=== PATIENT | female | born 1995 | race Caucasian/White ===

== ENCOUNTER 2021-05-30 19:09 | Inpatient (IN) | payer BC ==
[2021-05-30] MEDS ORDERED: Sodium Chloride 0.9% 10 ML Syringe FLUSH PRN (19:32)
[2021-05-30] MEDS ORDERED: Nalbuphine 10 MG/1 ML Vial IVPUSH PRN (19:32)
[2021-05-30] MEDS ORDERED: Calcium Carbonate 500 MG Tab.Chew PO PRN (19:32)
[2021-05-30] MEDS ORDERED: Ondansetron 4 MG/2 ML SDV IVPUSH PRN (19:32)
[2021-05-30] MEDS ORDERED: Oxytocin/Lactated Ringers 10 UNIT/1,000 ML BAG IV SCH ×2 (19:45)
--- NOTE | 2021-05-30 20:16 | PCM.LDHP ---
L&D History of Present Illness - General Date of Service: 05/30/21 Admit Problem/Dx: Patient Status Order with Admit Dx/Problem 05/30/21 19:33 Patient Status [ADT] Routine Admission Diagnosis/Problem Admission Diagnosis/Problem Source of Information: Patient History Limitations: Reports: No Limitations - History of Present Illness Introduction:: Jessie Lang is a 26-year-old female at 40 weeks 6 days (BAILEE 05/24/2021) by LMP consistent with a 10-week ultrasound who presents for induction of labor with late term . She states that she has overall been doing well since she was seen on 05/27. She did have some bleeding after that appointment with a membrane stripping performed in the office. She states that today at around 5:30 PM she started to have increased amounts of vaginal discharge and fluid c oming from the vagina. She states it is a clear and odorless fluid. It has been continuous enough to cause her to wear a pad. She denies any regular contractions or cramping with any of this. She has had some irregular contractions with 1-2 contractions per hour. She denies any vaginal bleeding with this leaking of fluid. She reports good movement Timing/Duration: Reports: sudden onset (Clear fluid at around 5:30 PM with continuous leaking of fluid since then), intermittent (Contractions with 1 to 2/h) Location, : Reports: Lower back, Pelvic, Uterus Quality: Reports: Pressure, Throbbing Severity: Moderate Associated Symptoms: Reports: vaginal fluid, mild amount. Denies: vaginal bleeding, vaginal discharge Present Illness Comments:: Jessie Lang is a 26-year-old female at 40 weeks 6 days (BAILEE 05/24/2021) by LMP consistent with a 10-week ultrasound who presents for induction of labor. She has had routine care starting at 10 weeks gestational age. Her care has been with myself, Dr. Nettles, starting after her initial visit was with Namrata Rodriguez. Her has been overall uncomplicated. At her initial anatomy ultrasound there was a small pericardial effusion that had reevaluation done by Dr. Wilson, [facility], that did not show any evidence of pericardial effusion. She had additional monitoring of the heart and there were no abnormalities with pericardial effusion at future evaluations as performed by Dr. Wilson. She received Tdap vaccine on 03/02/2021. She had flu shot on 06/19/2020. She was GBS negative on swab on 04/26/2021. Her care is complicated by: * Marginal cord insertion noted on anatomy ultrasounds. growth appropriate hand was at the 39th percentile on most recent ultrasounds done on 04/13/2021 * Pericardial effusion noted on anatomy ultrasound done on 01/05/2021 that had resolution of the pericardial effusion on future ultrasounds. * Anxiety in and has not required significant medication for her anxiety during [employer] history : Current labs Blood type: B+ Antibody screen: Negative First trimester hematocrit/hemoglobin: 38.3%/13.1 on 10/28/2019 Platelets: 385 on 10/28/2020 Urine culture: No growth Rubella status: Immune Hepatitis B surface antigen: Negative RPR: Negative Hepatitis C: Negative HIV: Negative Gonorrhea: Negative Chlamydia: Negative Genetic testing: Anatomy ultrasound: Normal anatomy, no abnormalities, left lateral placenta, no previa, marginal cord insertion, 39th percentile on 04/13/2021 One hour glucose tolerance test: 116 Second trimester hematocrit/hemoglobin: 33.9%/11.6 on 02/09/2021 Platelets: 338 on 02/09/2021 GBS status: Negative - Related Data Allergies/Adverse Reactions: Allergies Allergy/AdvReac Type Severity Reaction Status Date / Time No Known Allergies Allergy Verified 05/30/21 19:27 Past Medical History [employer] History: Reports: : 1 Para: 0 Psychiatric History: Reports: Anxiety - Past Surgical History HEENT Surgical History: Reports: None GI Surgical History: Reports: None Female Surgical History: Reports: None Social & Family History - Tobacco Use Tobacco Use Status *Q: Never Tobacco User Tobacco Use Within Last Twelve Months: No - Tobacco Core Measures Tobacco Use/Smoking Within Last 30 Days: No Smokeless Tobacco Use in Last 30 Days: No - Alcohol Use Alcohol Use History: No Alcohol Use in Last Twelve Months: No - Recreational Drug Use Recreational Drug Use: No Drug Use in Last 12 Months: No - Living Situation & Occupation Living situation: Reports: , with Spouse Occupation: Student H&P Review of Systems - Review of Systems: Review Of Systems: See Below General: Denies: Fever, Chills, Malaise, Weakness, Fatigue HEENT: Reports: Glasses, Sinus Congestion. Denies: Eye Pain, Headaches, Rhi nitis, Post Nasal Drip, Sore Throat, Visual Changes Pulmonary: Denies: Shortness of Breath, Wheezing, Pleuritic Chest Pain, Cough Cardiovascular: Denies: Chest Pain, Palpitations, Dyspnea on Exertion Gastrointestinal: Denies: Abdominal Pain, Constipation, Diarrhea, Nausea, Vomiting Genitourinary: Reports: Other (watery vaginal discharge). Denies: Dysuria, Frequency, Burning, Pain, Urgency Musculoskeletal: Reports: Back Pain (and hip pain of ) Skin: Denies: Rash, Lesions Psychiatric: Denies: Depression, Anxiety Neurological: Denies: Headache L&D Exam - Exam Exam: See Below - Vital Signs Weight: 67.948 kg - OB Specific Contraction Duration (sec): 45-75 Contraction Frequency (min): 2-4 Contraction Intensity: Mild to Moderate Movement: Active Heart Tones: Present Heart Tones per Min: 125 (+15 x 15 accelerations, no decelerations) Heart Rate (FHR) Variability: Moderate (6-25 bpm) Presentation: Vertex Estimated Weight: 7-7.5 pounds by Ajit - Monson Score Monson Score Cervix Position: Midposition Monson Score Consistency: Medium Monson Score Effacement: >80% (80%) Monson Score Dilation: 3-4 cm (3 cm) Monson Score Infant's Station: -2 Monson Score Total: 8 - Exam General: Alert, Oriented HEENT: Conjunctiva Clear, EOMI Neck: Supple, Trachea Midline Lungs: Clear to Auscultation, Normal Respiratory Effort Cardiovascular: Regular Rate, Regular Rhythm GI/Abdominal Exam: Soft, Non-Tender, No Distention. No: Guarding, Rigid, Rebound, Tender Genitourinary: Normal external exam, Vaginal discharge (Small amount of watery discharge on the perineum and on the Chux under the patient), Other (Foregbag on cervical exam felt intact) Extremities: Normal Inspection, No Pedal Edema Skin: Warm, Dry, Intact Psychiatric: Alert, Normal Affect, Normal Mood - Patient Data Lab Results Last 24 hrs: Laboratory Results - last 24 hr 05/30/21 Range/Units 19:50 WBC 11.92 H (3.98-10.04) K/mm3 RBC 3.52 L (3.98-5.22) M/mm3 Hgb 11.1 L (11.2-15.7) gm/dl Hct 33.8 L (34.1-44.9) % MCV 96.0 H (79.4-94.8) fl MCH 31.5 (25.6-32.2) pg MCHC 32.8 (32.2-35.5) g/dl RDW Std Deviation 47.2 H (36.4-46.3) fL Plt Count 330 (182-369) K/mm3 MPV 8.8 L (9.4-12.3) fl Neut % (Auto) 71.9 H (34.0-71.1) % Lymph % (Auto) 19.3 (19.3-51.7) % [place] % (Auto) 7.5 (4.7-12.5) % Eos % (Auto) 0.8 (0.7-5.8) Baso % (Auto) 0.2 (0.1-1.2) % Neut # (Auto) 8.58 H (1.56-6.13) K/mm3 Lymph # (Auto) 2.30 (1.18-3.74) K/mm3 [place] # (Auto) 0.89 H (0.24-0.36) K/mm3 Eos # (Auto) 0.10 (0.04-0.36) K/mm3 Baso # (Auto) 0.02 (0.01-0.08) K/mm3 Result Diagrams: 05/30/21 19:50 - Problem List (1) 41 weeks gestation of SNOMED Code(s): 55426719 ICD Code: Z3A.41 - 41 WEEKS GESTATION OF Status: Acute Current Visit: Yes (2) Anxiety during SNOMED Code(s): 88053782550493 ICD Code: O99.340 - OTH MENTAL DISORDERS COMPLICATING , UNSP TRIMESTER; F41.9 - ANXIETY DISORDER, UNSPECIFIED Status: Acute Current Visit: Yes Problem List Initiated/Reviewed/Updated: Yes Orders Last 24hrs: Active Orders 24 hr Category Date Time Status Patient Status [ADT] Routine ADT 05/30/21 19:33 Active Activity as Tolerated [RC] PFP Care 05/30/21 19:32 Active Communication Order [RC] ASDIRECTED Care 05/30/21 19:32 Active Heart Tones [RC] ASDIRECTED Care 05/30/21 19:34 Active Non Stress Test [RC] PER UNIT ROUTINE Care 05/30/21 19:32 Active Notify Provider [RC] PFP Care 05/30/21 19:32 Active Notify Provider [RC] PRN Care 05/30/21 19:32 Active Peripheral IV Care [RC] . DIRECTED Care 05/30/21 19:34 Active Pump Management, Intrathecal [RC] ASDIRECTED Care 05/30/21 19:34 Active Urinary Catheter Assessment [RC] ASDIRECTED Care 05/30/21 19:32 Active Vital Signs [RC] PER UNIT ROUTINE Care 05/30/21 19:32 Active Regular Diet [DIET] Diet 05/30/21 Dinner Active CORONAVIRUS COVID-19 DAIANA [MOLEC] Stat Lab 05/30/21 19:36 Ordered RAPID PLASMA REAGIN,RPR [CHEM] Routine Lab 05/30/21 19:50 Received TYPE AND SCREEN [BBK] Stat Lab 05/30/21 19:50 Received Calcium Carbonate [Tums] Med 05/30/21 19:32 Active 1,000 mg PO Q2H PRN Lactated Ringers [Ringers, Lactated] 1,000 ml Med 05/30/21 19:45 Active IV ASDIRECTED Nalbuphine [Nubain] Med 05/30/21 19:32 Active 10 mg IVPUSH Q2H PRN Ondansetron [Zofran] Med 05/30/21 19:32 Active 4 mg IVPUSH Q4H PRN Oxytocin/Lactated Ringers [Pitocin in LR 10 Units/1,000 Med 05/30/21 19:45 Active ML] 10 unit in 1,000 ml IV .CONTINUOUS Oxytocin/Lactated Ringers [Pitocin in LR 10 Units/1,000 Med 05/30/21 19:45 Active ML] 10 unit in 1,000 ml IV TITRATE Sodium Chloride 0.9% [Saline Flush] Med 05/30/21 19:32 Active 10 ml FLUSH ASDIRECTED PRN Electronic Heart Tones Ext w TOCO [WOMSER] Oth 05/30/21 19:32 Ordered Routine Electronic Heart Tones Internal [WOMSER] Per Unit Oth 05/30/21 19:32 Ordered Routine Peripheral IV Insertion Adult [OM.PC] Routine Oth 05/30/21 19:32 Ordered Resuscitation Status Routine Resus Stat 05/30/21 19:32 Ordered Medication Orders Calcium Carbonate/Glycine (Calcium Carbonate 500 Mg Tab.Chew) 1,000 mg PO Q2H PRN PRN Reason: Indigestion Oxytocin/Lactated Ringer's (Pitocin In Lr 10 Units/1,000 Ml) 10 unit in 1,000 mls @ 12 mls/hr IV TITRATE KASSY; Protocol Oxytocin/Lactated Ringer's (Pitocin In Lr 10 Units/1,000 Ml) 10 unit in 1,000 mls @ 500 mls/hr IV .CONTINUOUS KASSY Lactated Ringer's (Ringers, Lactated) 1,000 mls @ 100 mls/hr IV ASDIRECTED KASSY Nalbuphine HCl (Nalbuphine 10 Mg/1 Ml Vial) 10 mg IVPUSH Q2H PRN PRN Reason: Pain Ondansetron HCl (Ondansetron 4 Mg/2 Ml Sdv) 4 mg IVPUSH Q4H PRN PRN Reason: Nausea/Vomiting Sodium Chloride (Sodium Chloride 0.9% 10 Ml Syringe) 10 ml FLUSH ASDIRECTED PRN PRN Reason: Keep Vein Open Assessment/Plan Comment:: Jessie Lang is a 26-year-old at 40 weeks 6 days (BAILEE 05/24/2021) who presents for induction of labor with suspected spontaneous rupture membrane After initial evaluation prior to finishing the note the patient had a large gush of clear fluid with a contraction and was felt to have gross rupture membranes Refer to observation for spontaneous rupture of membranes Start on Cytotec 25 mcg buccally for 1 dose to try to cause cervical ripening of the cervix with medium consistency Plan to start on Pitocin at 4 hours after the first dose of Cytotec for augmentation of labor if she does not have contractions that started on her own Continuous monitoring Place IV and have Lactated Ringer's at 125 ml/hr May have small amounts of regular diet Activity as tolerated May have epidural as desired Plans to breast-feed after delivery Anticipate vaginal delivery unless otherwise indicated Andrew Nettles MD 8:39 PM 05/30/2021
[2021-05-30] MEDS ORDERED: Misoprostol 25 MCG (1/4 of 100 MCG) Tab PO ONE (20:31)
[2021-05-31] MEDS: Lactated Ringers 1,000 ML IV SCH ×4 (01:29→09:30)
[2021-05-31] MEDS ORDERED: fentaNYL 100 MCG/2 ML SDV EPIDUR PRN (02:56)
[2021-05-31] MEDS ORDERED: diphenhydrAMINE 50 MG/ML SDV IVPUSH PRN (02:56)
[2021-05-31] MEDS ORDERED: ePHEDrine 50 MG/ML SDV IVPUSH PRN (02:56)
--- NOTE | 2021-05-31 03:22 | PCM.PREANE ---
Preanesthetic Assessment - Procedure Proposed Procedure: laura - Anesthesia/Transfusion/Family Hx Anesthesia History: No Prior Anesthesia Family History of Anesthesia Reaction: No Transfusion History: No Prior Transfusion(s) - Review of Systems General: No Symptoms Pulmonary: No Symptoms Cardiovascular: No Symptoms Gastrointestinal: No Symptoms Neurological: No Symptoms Other: Reports: Anxiety - Physical Assessment Vital Signs: Last Vital Signs Temp 98.9 F 05/30/21 19:26 Pulse 109 H 05/30/21 19:26 Resp 16 05/30/21 19:26 BP 133/89 05/30/21 19:26 Pulse Ox 100 05/30/21 19:26 Height: 5 ft 3 in Weight: 67.948 kg ASA Class: 2 Mental Status: Alert & Oriented x3 Airway Class: Mallampati = 1 Dentition: Reports: Normal Dentition Thyro-Mental Finger Breadths: 3 Mouth Opening Finger Breadths: 3 ROM/Head Extension: Full Lungs: Clear to Auscultation, Normal Respiratory Effort Cardiovascular: Regular Rate, Regular Rhythm - Lab Values: Laboratory Last Values WBC 11.92 K/mm3 (3.98-10.04) H 05/30/21 19:50 RBC 3.52 M/mm3 (3.98-5.22) L 05/30/21 19:50 Hgb 11.1 gm/dl (11.2-15.7) L 05/30/21 19:50 Hct 33.8 % (34.1-44.9) L 05/30/21 19:50 MCV 96.0 fl (79.4-94.8) H 05/30/21 19:50 MCH 31.5 pg (25.6-32.2) 05/30/21 19:50 MCHC 32.8 g/dl (32.2-35.5) 05/30/21 19:50 RDW Std Deviation 47.2 fL (36.4-46.3) H 05/30/21 19:50 Plt Count 330 K/mm3 (182-369) 05/30/21 19:50 MPV 8.8 fl (9.4-12.3) L 05/30/21 19:50 Neut % (Auto) 71.9 % (34.0-71.1) H 05/30/21 19:50 Lymph % (Auto) 19.3 % (19.3-51.7) 05/30/21 19:50 [place] % (Auto) 7.5 % (4.7-12.5) 05/30/21 19:50 Eos % (Auto) 0.8 (0.7-5.8) 05/30/21 19:50 Baso % (Auto) 0.2 % (0.1-1.2) 05/30/21 19:50 Neut # (Auto) 8.58 K/mm3 (1.56-6.13) H 05/30/21 19:50 Lymph # (Auto) 2.30 K/mm3 (1.18-3.74) 05/30/21 19:50 [place] # (Auto) 0.89 K/mm3 (0.24-0.36) H 05/30/21 19:50 Eos # (Auto) 0.10 K/mm3 (0.04-0.36) 05/30/21 19:50 Baso # (Auto) 0.02 K/mm3 (0.01-0.08) 05/30/21 19:50 Membrane Rupture Positive H 05/30/21 20:04 RPR Non-reactive (NONREACTIVE) 05/30/21 19:50 SARS-CoV-2 RNA (DAIANA) Negative (NEGATIVE) 05/30/21 20:43 Blood Type B POSITIVE 05/30/21 19:50 Gel Antibody Screen Negative 05/30/21 19:50 - Allergies Allergies/Adverse Reactions: Allergies Allergy/AdvReac Type Severity Reaction Status Date / Time No Known Allergies Allergy Verified 05/30/21 19:27 - Blood Blood Available: No - Acknowledgements Anesthesia Type Planned: Epidural Pt an Appropriate Candidate for the Planned Anesthesia: Yes PreAnesthesia Questionnaire - Past Health History Medical/Surgical History: Denies Medical/Surgical History HEENT History: Reports: Other (See Below) Other HEENT History: wears glasses Cardiovascular History: Reports: None Respiratory History: Reports: None Gastrointestinal History: Reports: GERD 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: Reports: : 1 Para: 0 Musculoskeletal History: Reports: None Psychiatric History: Reports: Anxiety Endocrine/Metabolic History: Reports: None Oncologic (Cancer) History: Reports: None - Past Surgical History HEENT Surgical History: Reports: None GI Surgical History: Reports: None Female Surgical History: Reports: None - SUBSTANCE USE Tobacco Use Status *Q: Never Tobacco User Tobacco Use Within Last Twelve Months: No Second Hand Smoke Exposure: No Days Per Week of Alcohol Use: 0 Recreational Drug Use History: No - CURRENT (IN HOUSE) MEDS Current Meds: Current Medications Calcium Carbonate/Glycine (Calcium Carbonate 500 Mg Tab.Chew) 1,000 mg PO Q2H PRN PRN Reason: Indigestion Diphenhydramine HCl (Diphenhydramine 50 Mg/Ml Sdv) 25 mg IVPUSH Q6H PRN PRN Reason: pruritis Ephedrine Sulfate (Ephedrine 50 Mg/Ml Sdv) 5 mg IVPUSH ASDIRECTED PRN PRN Reason: Hypotension Fentanyl (Fentanyl 100 Mcg/2 Ml Sdv) 100 mcg EPIDUR Q3H PRN PRN Reason: Pain Fentanyl/Bupivacaine HCl (Bupivacaine/Fentanyl/Ns 100 Ml Bag) 100 ml EPIDUR ASDIRECTED PRN PRN Reason: Pain Oxytocin/Lactated Ringer's (Pitocin In Lr 10 Units/1,000 Ml) 10 unit in 1,000 mls @ 12 mls/hr IV TITRATE KASSY; Protocol Last Admin: 05/31/21 01:36 Dose: 2 munits/min, 12 mls/hr Documented by: Oxytocin/Lactated Ringer's (Pitocin In Lr 10 Units/1,000 Ml) 10 unit in 1,000 mls @ 500 mls/hr IV .CONTINUOUS KASSY Lactated Ringer's (Ringers, Lactated) 1,000 mls @ 100 mls/hr IV ASDIRECTED KASSY Last Admin: 05/31/21 01:29 Dose: 100 mls/hr Documented by: Nalbuphine HCl (Nalbuphine 10 Mg/1 Ml Vial) 10 mg IVPUSH Q2H PRN PRN Reason: Pain Ondansetron HCl (Ondansetron 4 Mg/2 Ml Sdv) 4 mg IVPUSH Q4H PRN PRN Reason: Nausea/Vomiting Sodium Chloride (Sodium Chloride 0.9% 10 Ml Syringe) 10 ml FLUSH ASDIRECTED PRN PRN Reason: Keep Vein Open Discontinued Medications Misoprostol (Misoprostol 25 Mcg (1/4 Of 100 Mcg) Tab) 25 mcg PO ONETIME ONE Stop: 05/30/21 20:32 Last Admin: 05/30/21 21:13 Dose: 25 mcg Documented by:
[2021-05-31] MEDS: Bupivacaine/fentaNYL/NS 100 ML Bag EPIDUR PRN ×3 (03:38→15:21)
--- NOTE | 2021-05-31 08:26 | PCM.PNLD ---
Labor Progress Note - VS & Meds Vital Signs: Last Vital Signs Temp 37.2 C 05/30/21 19:26 Pulse 109 H 05/30/21 19:26 Resp 16 05/30/21 19:26 BP 133/89 05/30/21 19:26 Pulse Ox 100 05/30/21 19:26 Active Medications: Current Medications Calcium Carbonate/Glycine (Calcium Carbonate 500 Mg Tab.Chew) 1,000 mg PO Q2H PRN PRN Reason: Indigestion Diphenhydramine HCl (Diphenhydramine 50 Mg/Ml Sdv) 25 mg IVPUSH Q6H PRN PRN Reason: pruritis Ephedrine Sulfate (Ephedrine 50 Mg/Ml Sdv) 5 mg IVPUSH ASDIRECTED PRN PRN Reason: Hypotension Fentanyl (Fentanyl 100 Mcg/2 Ml Sdv) 100 mcg EPIDUR Q3H PRN PRN Reason: Pain Last Admin: 05/31/21 03:36 Dose: 100 mcg Documented by: Fentanyl/Bupivacaine HCl (Bupivacaine/Fentanyl/Ns 100 Ml Bag) 100 ml EPIDUR ASDIRECTED PRN PRN Reason: Pain Last Admin: 05/31/21 03:38 Dose: 100 ml Documented by: Oxytocin/Lactated Ringer's (Pitocin In Lr 10 Units/1,000 Ml) 10 unit in 1,000 mls @ 12 mls/hr IV TITRATE KASSY; Protocol Last Titration: 05/31/21 06:13 Dose: 4 munits/min, 24 mls/hr Documented by: Oxytocin/Lactated Ringer's (Pitocin In Lr 10 Units/1,000 Ml) 10 unit in 1,000 mls @ 500 mls/hr IV .CONTINUOUS KASSY Lactated Ringer's (Ringers, Lactated) 1,000 mls @ 100 mls/hr IV ASDIRECTED KASSY Last Admin: 05/31/21 03:50 Dose: 100 mls/hr Documented by: Nalbuphine HCl (Nalbuphine 10 Mg/1 Ml Vial) 10 mg IVPUSH Q2H PRN PRN Reason: Pain Ondansetron HCl (Ondansetron 4 Mg/2 Ml Sdv) 4 mg IVPUSH Q4H PRN PRN Reason: Nausea/Vomiting Sodium Chloride (Sodium Chloride 0.9% 10 Ml Syringe) 10 ml FLUSH ASDIRECTED PRN PRN Reason: Keep Vein Open Discontinued Medications Misoprostol (Misoprostol 25 Mcg (1/4 Of 100 Mcg) Tab) 25 mcg PO ONETIME ONE Stop: 05/30/21 20:32 Last Admin: 05/30/21 21:13 Dose: 25 mcg Documented by: - Uterine Contractions Uterine Monitoring Mode: External [place] Contraction Frequency (min): 1-3 Contraction Duration (sec): 60-75 Contraction Intensity: Strong Uterine Resting Tone: Soft - Monitoring Monitor Mode: Doppler/Auscultation Heart Rate (FHR) Baseline: 135 Heart Rate (FHR) Per Doppler: 135 Heart Rate (FHR) Variability: Moderate (6-25 bpm) Accelerations: Present, 15x15 Decelerations: Variable, Intermittent (<50% x 20 min) Strip Review: Category II - Vaginal Exam Dilation (cm): 7 Effacement (Percent): 100 Station: 1 Cervical Position: Anterior Sterile Vaginal Exam Performed By: Andrew Nettles - Labor Progress (Free Text) Labor Progress: Jessie Lang is a 26-year-old at 41 weeks 0 days undergoing induction of labor with spontaneous rupture membranes prior to admission Patient making good progress at this time and is dilated to 7 cm Continue Pitocin for augmentation of labor and adjust as needed to try to reduce tachysystole pattern Patient with 1 mild range blood pressure prior to receiving her epidural. Lab work all within normal limits. Patient has had ongoing normal range blood pressures that are approaching mild range blood pressures but have not been above the mild range threshold Urine protein/creatinine ratio was 0.219 and does not show significant proteinuria Routine vitals Continue epidural for anesthesia Continuous monitoring Anticipate vaginal delivery unless otherwise indicated Andrew Nettles MD 8:26 AM 05/31/2021
--- NOTE | 2021-05-31 19:52 | PCM.DEL ---
L & D Note - General Info Date of Service: 05/31/21 Mother's Due Date: 05/24/21 - Delivery Note Labor: Augmented by Oxytocin Cervical Ripening Method: Misoprostil (25 mcg bucally x 1 dose on initial presentation ) Infant Delivery Method: Spontaneous Vaginal Delivery-Single Infant Delivery Mode: Vacuum Extraction (Aceves type) Presentation: Right Occiput Posterior (ROP) Nuchal Cord: None Anesthesia Type: Epidural Episiotomy Type: None Laceration: 2nd Degree (midline perineal, repaired with 3-0 Vicryl), Vaginal (left vaginal sidewall repaired with 3-0 Vicryl) Suture type: Vicryl Suture size: 3-0 Placenta: Intact, Spontaneous Cord: 3 Vessels Estimated Blood Loss: 800 Resuscitation Needed: Yes [place]: Suctioned, Bulb Syringe, Cathether, Stimulated, Warmed, Taylor Used, Warmer Used Score 1 min: 6 Score 5 min: 8 Second Stage Interventions: Reports: Pushing Effectively, Pushing, Squatting, Pushing, Stirrups/Leg Supports Delivery Comments (Free Text/Narrative):: Stage I: Jessie Lang was admitted for induction of labor. On admission her cervix was dilated to 3 cm. She was GBS negative. Patient noted that she was having ongoing leaking of fluid prior to her arrival and an AmniSure test was collected. While waiting for the results of the AmniSure she had a large gush of clear fluid with a contraction and was felt to have had spontaneous rupture of membranes. She was given 1 dose of Cytotec 25 mcg buccally to promote cervical ripening prior to starting on Pitocin for augmentation of labor. She was started on Pitocin for augmentation of labor after the first dose of Cytotec. She was given an epidural for anesthesia. She continues to make slow progress throughout the morning and early afternoon of HD #2. She began pushing at around 2 PM on HD #2. During pushing it was noted that there was moderate meconium stained fluid present. Patient had straight catheterization of the bladder with return of approximately 25 mL of dark urine to ensure that the bladder was completely emptied after she had been pushing for approximately 3 hours. Stage II: Patient had been pushing for approximately 4.5 hours and had brought the infant down to a +2 station and was beginning to have decreased strength and effort with her pushes. She was counseled on options available including continued pushing, vacuum extractor delivery or section. Patient desired to continue with pushing for additional time at this point. Patient pushed for approximately 20 additional minutes and desired to proceed with vacuum extractor delivery due to maternal exhaustion. Patient was counseled on the risks and benefits of the vacuum extractor delivery including risks of maternal laceration, scalp laceration, cephalhematoma, subgaleal hemorrhage and shoulder dystocia. The mechanical belt type suction cup was then applied with care taken to ensure that the edematous vaginal tissue was not included between the vacuum extractor and the scalp. There was a significant amount of edema of the vaginal tissue inferior to the urethra. The was felt to be in a occiput posterior position based on exam. The vacuum extractor was placed at the flexion point on the head and vacuum was applied with each contraction. Suction was released between contractions. The vacuum was applied to approximately 550 mmHg during the contractions. Over the course of 2 contractions gentle traction was applied with maternal pushing and the was able to be delivered. The total amount of suction time was approximately 60 seconds. There were no pop offs during the delivery. During the first contraction the infant was delivered approximately intermediate and then the was able to be delivered with the second contraction. On 05/31/2021 she had a vacuum-assisted vaginal delivery of a live male at 18:58. Apgars of 6 & 8. Weight of 3360 g (7 lbs 6.5 oz). Length of 21.2 inches. There was no nuchal cord. Infant was delivered in ROP position. The cord was doubly clamped and cut by father the infant approximately 20 seconds after delivery. Infant was taken to the warmer for further resuscitation. Stage III: She had a spontaneous delivery of an intact placenta in Brijesh presentation. Three vessel cord. She was given pitocin and fundal massage. She had a second-degree left vaginal sidewall laceration that was repaired with 3-0 Vicryl. She had second-degree midline perineal laceration that was repaired with 3-0 Vicryl. Care was taken to ensure that there was not any additional laceration of the external anal sphincter. The muscle sheath of the external anal sphincter was intact on exam. Mom and baby were stable to recovery. EBL of 800 mL. Andrew eNttles MD 8:04 PM 05/31/2021 Induction Criteria - Monson Score Monson Score Dilation: 3-4 cm Monson Score Effacement: >80% Monson Score 's Station: -2 Monson Score Consistency: Medium Monson Score Cervix Position: Midposition Monson Score Total: 8 Monson Score Presenting Part: Reports: Cephalic - Induction Gestational Age >/= 39 wks: Yes Estimated Pelvis: Reports: Adequate Reassuring Monitoring Strip: Yes Absence of Tachy Systole: Yes - Augmentation Estimated Pelvis: Reports: Adequate Weight Estimated:: Reports: AGA Reassuring Monitoring Strip: Yes Absence of Tachy Systole: Yes Vacuum Extractor Progress Note - Alternative Labor Strategies Considered Alternative Labor Strategies Considered:: Reports: Yes Strategies Considered:: Reports: Contraction Intensity Adequate, Position Changes Used to Facilitate Rotation & Descent, Empty Bladder, Rest Indications:: Reports: Shortening of 2nd Stage for Maternal Benefit Time Out:: Reports: Yes - Patient Prepared Patient Prepared:: Reports: Yes Informed Consent:: Reports: Verbal Risks: Reports: Yes Risks Include:: Reports: Laceration, Shoulder Dystocia, Maternal Injury, Other ( injury) Anesthesia/Analgesia Adequate:: Reports: Yes - Probability of Success High Probability of Success:: Reports: Yes Weight Estimated:: Reports: AGA Patient Diabetic:: Reports: No Pelvis Adequate:: Reports: Yes Position:: Right occiput posterior Asynclitic:: Reports: No Station:: +2 - Application Time Maximum Application Time & Number of Pop-Offs Predetermined:: Reports: Yes Maximum Pressure Maintained in [place] (cm Hg):: 55 Total Application Time (min): *max=20min: 1 Number of Times Cup Disengaged:: 0 Type of Vacuum Used:: Reports: Cup: Aceves type Vacuum Extraction: Successful - Exit Strategy Exit strategy available:: Reports: Yes and resuscitation teams readily available:: Reports: Yes - General Info Date of Service: 05/31/21 - Patient Data Vitals - Most Recent: Last Vital Signs Temp 37.2 C 05/30/21 19:26 Pulse 109 H 05/30/21 19:26 Resp 16 05/30/21 19:26 BP 133/89 05/30/21 19:26 Pulse Ox 100 05/30/21 19:26 Weight - Most Recent: 67.948 kg I&O - Last 24 Hours: Intake & Output 05/31/21 05/31/21 05/31/21 06:59 14:59 22:59 Intake Total 3000 4500 Output Total 450 400 Balance 2550 -400 4500 Lab Results Last 24 Hours: Laboratory Results - last 24 hr 05/30/21 05/30/21 05/30/21 Range/Units 19:50 19:50 19:50 WBC 11.92 H (3.98-10.04) K/mm3 RBC 3.52 L (3.98-5.22) M/mm3 Hgb 11.1 L (11.2-15.7) gm/dl Hct 33.8 L (34.1-44.9) % MCV 96.0 H (79.4-94.8) fl MCH 31.5 (25.6-32.2) pg MCHC 32.8 (32.2-35.5) g/dl RDW Std Deviation 47.2 H (36.4-46.3) fL Plt Count 330 (182-369) K/mm3 MPV 8.8 L (9.4-12.3) fl Neut % (Auto) 71.9 H (34.0-71.1) % Lymph % (Auto) 19.3 (19.3-51.7) % [place] % (Auto) 7.5 (4.7-12.5) % Eos % (Auto) 0.8 (0.7-5.8) Baso % (Auto) 0.2 (0.1-1.2) % Neut # (Auto) 8.58 H (1.56-6.13) K/mm3 Lymph # (Auto) 2.30 (1.18-3.74) K/mm3 [place] # (Auto) 0.89 H (0.24-0.36) K/mm3 Eos # (Auto) 0.10 (0.04-0.36) K/mm3 Baso # (Auto) 0.02 (0.01-0.08) K/mm3 Sodium (136-145) mEq/L Potassium (3.5-5.1) mEq/L Chloride (98-107) mEq/L Carbon Dioxide (21-32) mEq/L Anion Gap (5-15) BUN (7-18) mg/dL Creatinine (0.55-1.02) mg/dL Est Cr Clr Drug Dosing mL/min Estimated GFR (MDRD) (>60) mL/min BUN/Creatinine Ratio (14-18) Glucose (70-99) mg/dL Calcium (8.5-10.1) mg/dL Total Bilirubin (0.2-1.0) mg/dL AST (15-37) U/L ALT (14-59) U/L Alkaline Phosphatase (46-116) U/L Lactate Dehydrogenase (81-234) U/L Total Protein (6.4-8.2) g/dl Albumin (3.4-5.0) g/dl Globulin gm/dL Albumin/Globulin Ratio (1-2) Ur Random Creatinine (30.0-125.0) mg/dL U Random Total Protein (0.0-11.8) mg/dL Protein/Creatinin Ratio (0-149) mg/g Membrane Rupture RPR Non-reactive (NONREACTIVE) SARS-CoV-2 RNA (DAIANA) (NEGATIVE) Blood Type B POSITIVE Gel Antibody Screen Negative 05/30/21 05/30/21 05/30/21 Range/Units 19:52 20:04 20:43 WBC (3.98-10.04) K/mm3 RBC (3.98-5.22) M/mm3 Hgb (11.2-15.7) gm/dl Hct (34.1-44.9) % MCV (79.4-94.8) fl MCH (25.6-32.2) pg MCHC (32.2-35.5) g/dl RDW Std Deviation (36.4-46.3) fL Plt Count (182-369) K/mm3 MPV (9.4-12.3) fl Neut % (Auto) (34.0-71.1) % Lymph % (Auto) (19.3-51.7) % [place] % (Auto) (4.7-12.5) % Eos % (Auto) (0.7-5.8) Baso % (Auto) (0.1-1.2) % Neut # (Auto) (1.56-6.13) K/mm3 Lymph # (Auto) (1.18-3.74) K/mm3 [place] # (Auto) (0.24-0.36) K/mm3 Eos # (Auto) (0.04-0.36) K/mm3 Baso # (Auto) (0.01-0.08) K/mm3 Sodium 142 (136-145) mEq/L Potassium 3.7 (3.5-5.1) mEq/L Chloride 105 (98-107) mEq/L Carbon Dioxide 20 L (21-32) mEq/L Anion Gap 20.7 H (5-15) BUN 8 (7-18) mg/dL Creatinine 0.8 (0.55-1.02) mg/dL Est Cr Clr Drug Dosing 87.38 mL/min Estimated GFR (MDRD) > 60 (>60) mL/min BUN/Creatinine Ratio 10.0 L (14-18) Glucose 124 H (70-99) mg/dL Calcium 8.7 (8.5-10.1) mg/dL Total Bilirubin 0.2 (0.2-1.0) mg/dL AST 15 (15-37) U/L ALT 14 (14-59) U/L Alkaline Phosphatase 146 H (46-116) U/L Lactate Dehydrogenase 135 (81-234) U/L Total Protein 6.4 (6.4-8.2) g/dl Albumin 2.7 L (3.4-5.0) g/dl Globulin 3.7 gm/dL Albumin/Globulin Ratio 0.7 L (1-2) Ur Random Creatinine (30.0-125.0) mg/dL U Random Total Protein (0.0-11.8) mg/dL Protein/Creatinin Ratio (0-149) mg/g Membrane Rupture Positive H RPR (NONREACTIVE) SARS-CoV-2 RNA (DAIANA) Negative (NEGATIVE) Blood Type Gel Antibody Screen 05/31/21 Range/Units 04:05 WBC (3.98-10.04) K/mm3 RBC (3.98-5.22) M/mm3 Hgb (11.2-15.7) gm/dl Hct (34.1-44.9) % MCV (79.4-94.8) fl MCH (25.6-32.2) pg MCHC (32.2-35.5) g/dl RDW Std Deviation (36.4-46.3) fL Plt Count (182-369) K/mm3 MPV (9.4-12.3) fl Neut % (Auto) (34.0-71.1) % Lymph % (Auto) (19.3-51.7) % [place] % (Auto) (4.7-12.5) % Eos % (Auto) (0.7-5.8) Baso % (Auto) (0.1-1.2) % Neut # (Auto) (1.56-6.13) K/mm3 Lymph # (Auto) (1.18-3.74) K/mm3 [place] # (Auto) (0.24-0.36) K/mm3 Eos # (Auto) (0.04-0.36) K/mm3 Baso # (Auto) (0.01-0.08) K/mm3 Sodium (136-145) mEq/L Potassium (3.5-5.1) mEq/L Chloride (98-107) mEq/L Carbon Dioxide (21-32) mEq/L Anion Gap (5-15) BUN (7-18) mg/dL Creatinine (0.55-1.02) mg/dL Est Cr Clr Drug Dosing mL/min Estimated GFR (MDRD) (>60) mL/min BUN/Creatinine Ratio (14-18) Glucose (70-99) mg/dL Calcium (8.5-10.1) mg/dL Total Bilirubin (0.2-1.0) mg/dL AST (15-37) U/L ALT (14-59) U/L Alkaline Phosphatase (46-116) U/L Lactate Dehydrogenase (81-234) U/L Total Protein (6.4-8.2) g/dl Albumin (3.4-5.0) g/dl Globulin gm/dL Albumin/Globulin Ratio (1-2) Ur Random Creatinine 59.8 (30.0-125.0) mg/dL U Random Total Protein 13.1 H (0.0-11.8) mg/dL Protein/Creatinin Ratio 219.1 H (0-149) mg/g Membrane Rupture RPR (NONREACTIVE) SARS-CoV-2 RNA (DAIANA) (NEGATIVE) Blood Type Gel Antibody Screen Med Orders - Current: Current Medications Calcium Carbonate/Glycine (Calcium Carbonate 500 Mg Tab.Chew) 1,000 mg PO Q2H PRN PRN Reason: Indigestion Diphenhydramine HCl (Diphenhydramine 50 Mg/Ml Sdv) 25 mg IVPUSH Q6H PRN PRN Reason: pruritis Ephedrine Sulfate (Ephedrine 50 Mg/Ml Sdv) 5 mg IVPUSH ASDIRECTED PRN PRN Reason: Hypotension Fentanyl (Fentanyl 100 Mcg/2 Ml Sdv) 100 mcg EPIDUR Q3H PRN PRN Reason: Pain Last Admin: 05/31/21 03:36 Dose: 100 mcg Documented by: Fentanyl/Bupivacaine HCl (Bupivacaine/Fentanyl/Ns 100 Ml Bag) 100 ml EPIDUR ASDIRECTED PRN PRN Reason: Pain Last Admin: 05/31/21 15:21 Dose: 100 ml Documented by: Oxytocin/Lactated Ringer's (Pitocin In Lr 10 Units/1,000 Ml) 10 unit in 1,000 mls @ 12 mls/hr IV TITRATE KASSY; Protocol Last Titration: 05/31/21 14:59 Dose: 8 munits/min, 48 mls/hr Documented by: Oxytocin/Lactated Ringer's (Pitocin In Lr 10 Units/1,000 Ml) 10 unit in 1,000 mls @ 500 mls/hr IV .CONTINUOUS KASSY Lactated Ringer's (Ringers, Lactated) 1,000 mls @ 100 mls/hr IV ASDIRECTED KASSY Last Admin: 05/31/21 09:30 Dose: 100 mls/hr Documented by: Nalbuphine HCl (Nalbuphine 10 Mg/1 Ml Vial) 10 mg IVPUSH Q2H PRN PRN Reason: Pain Ondansetron HCl (Ondansetron 4 Mg/2 Ml Sdv) 4 mg IVPUSH Q4H PRN PRN Reason: Nausea/Vomiting Sodium Chloride (Sodium Chloride 0.9% 10 Ml Syringe) 10 ml FLUSH ASDIRECTED PRN PRN Reason: Keep Vein Open Discontinued Medications Misoprostol (Misoprostol 25 Mcg (1/4 Of 100 Mcg) Tab) 25 mcg PO ONETIME ONE Stop: 05/30/21 20:32 Last Admin: 05/30/21 21:13 Dose: 25 mcg Documented by: - Exam Urinary Catheter Total Time: 0Days 15Hours - Problem List & Annotations (1) 41 weeks gestation of SNOMED Code(s): 70525859 Code(s): Z3A.41 - 41 WEEKS GESTATION OF Status: Acute Current Visit: Yes (2) Anxiety during SNOMED Code(s): 41020995827316 Code(s): O99.340 - OTH MENTAL DISORDERS COMPLICATING , UNSP TRIMESTER; F41.9 - ANXIETY DISORDER, UNSPECIFIED Status: Acute Current Visit: Yes (3) Vaginal delivery SNOMED Code(s): 220404032 Code(s): O80 - ENCOUNTER FOR FULL-TERM UNCOMPLICATED DELIVERY Status: Acute Current Visit: Yes (4) Vacuum extractor delivery, delivered SNOMED Code(s): 076152097 Code(s): O75.9 - COMPLICATION OF LABOR AND DELIVERY, UNSPECIFIED Status: Acute Current Visit: Yes (5) Second degree perineal laceration during delivery SNOMED Code(s): 2298999 Code(s): O70.1 - SECOND DEGREE PERINEAL LACERATION DURING DELIVERY Status: Acute Current Visit: Yes (6) Thick meconium stained amniotic fluid SNOMED Code(s): 946855578 Code(s): P96.83 - MECONIUM STAINING Status: Acute Current Visit: Yes - Problem List Review Problem List Initiated/Reviewed/Updated: Yes - My Orders Last 24 Hours: My Active Orders 05/30/21 19:32 Activity as Tolerated [RC] PFP Communication Order [RC] ASDIRECTED Notify Provider [RC] PFP Notify Provider [RC] PRN Vital Signs [RC] PER UNIT ROUTINE Calcium Carbonate [Tums] 1,000 mg PO Q2H PRN Nalbuphine [Nubain] 10 mg IVPUSH Q2H PRN Ondansetron [Zofran] 4 mg IVPUSH Q4H PRN Sodium Chloride 0.9% [Saline Flush] 10 ml FLUSH ASDIRECTED PRN Electronic Heart Tones Ext w TOCO [WOMSER] Routine Electronic Heart Tones Internal [WOMSER] Per Unit Routine Peripheral IV Insertion Adult [OM.PC] Routine Resuscitation Status Routine 05/30/21 19:33 Patient Status [ADT] Routine 05/30/21 19:34 Peripheral IV Care [RC] . DIRECTED Pump Management, Intrathecal [RC] ASDIRECTED 05/30/21 19:45 Lactated Ringers [Ringers, Lactated] 1,000 ml IV ASDIRECTED Oxytocin/Lactated Ringers [Pitocin in LR 10 Units/1,000 ML] 10 unit in 1,000 ml IV .CONTINUOUS Oxytocin/Lactated Ringers [Pitocin in LR 10 Units/1,000 ML] 10 unit in 1,000 ml IV TITRATE - Plan Plan:: Jessie Lang is a 26-year-old now -0-0-1 status post vacuum-assisted vaginal delivery, PPD #0 Admit to inpatient following vacuum-assisted vaginal delivery Continue Pitocin per unit protocol following delivery of placenta and lactated Ringer's until tolerating regular diet Regular diet Vitals per unit routine Ibuprofen and Tylenol for pain control Assist with breast-feeding as needed Continue to monitor lochia Anticipate discharge home on day #2 Andrew Nettles MD 8:04 PM 05/31/2021
[2021-05-31] MEDS ORDERED: Benzocaine/Menthol 20%-0.5% Spray 56 GM Canister TOP PRN (20:08)
[2021-05-31] MEDS ORDERED: Witch Hazel Medicated Pads 40/Jar TOP PRN (20:08)
[2021-05-31] MEDS ORDERED: Acetaminophen 325 MG Tab PO PRN (20:08)
[2021-05-31] MEDS ORDERED: Magnesium Hydroxide 400 MG/5 ML Susp 30 ML Cup PO PRN (20:08)
[2021-05-31] MEDS ORDERED: Oxytocin/Lactated Ringers 10 UNIT/1,000 ML BAG IV SCH (20:15)
[2021-05-31] MEDS: Ibuprofen 600 MG Tab PO PRN (20:34)
[2021-06-01] MEDS: Ibuprofen 600 MG Tab PO PRN ×3 (03:16→19:50)
[2021-06-01] MEDS: Docusate Sodium 100 MG Cap PO PRN ×2 (05:49→19:51)
--- NOTE | 2021-06-01 07:43 | PCM.PNPP ---
- General Info Date of Service: 06/01/21 Functional Status: Reports: Pain Controlled - Review of Systems General: Reports: No Symptoms HEENT: Reports: No Symptoms Pulmonary: Reports: No Symptoms Cardiovascular: Reports: No Symptoms Gastrointestinal: Reports: No Symptoms Genitourinary: Reports: No Symptoms Musculoskeletal: Reports: No Symptoms Skin: Reports: No Symptoms Neurological: Reports: No Symptoms Psychiatric: Reports: No Symptoms - General Info Date of Service: 06/01/21 - Patient Data Vital Signs - Most Recent: Last Vital Signs Temp 36.8 C 06/01/21 03:09 Pulse 98 06/01/21 03:09 Resp 16 06/01/21 03:09 BP 96/52 L 06/01/21 03:09 Pulse Ox 100 06/01/21 03:09 Weight - Most Recent: 67.948 kg I&O - Last 24 Hours: Intake & Output 05/31/21 06/01/21 06/01/21 22:59 06:59 14:59 Intake Total 4500 Output Total 12 Balance 4500 -12 Lab Results - Last 24 Hours: Laboratory Results - last 24 hr 06/01/21 Range/Units 05:51 WBC 20.88 H (3.98-10.04) K/mm3 RBC 3.42 L (3.98-5.22) M/mm3 Hgb 10.6 L (11.2-15.7) gm/dl Hct 33.2 L (34.1-44.9) % MCV 97.1 H (79.4-94.8) fl MCH 31.0 (25.6-32.2) pg MCHC 31.9 L (32.2-35.5) g/dl RDW Std Deviation 48.6 H (36.4-46.3) fL Plt Count 388 H (182-369) K/mm3 MPV 9.2 L (9.4-12.3) fl Neut % (Auto) 87.4 H (34.0-71.1) % Lymph % (Auto) 7.8 L (19.3-51.7) % [place] % (Auto) 4.5 L (4.7-12.5) % Eos % (Auto) 0.2 L (0.7-5.8) Baso % (Auto) 0.0 L (0.1-1.2) % Neut # (Auto) 18.23 H (1.56-6.13) K/mm3 Lymph # (Auto) 1.62 (1.18-3.74) K/mm3 [place] # (Auto) 0.94 H (0.24-0.36) K/mm3 Eos # (Auto) 0.05 (0.04-0.36) K/mm3 Baso # (Auto) 0.01 (0.01-0.08) K/mm3 Med Orders - Current: Current Medications Acetaminophen (Acetaminophen 325 Mg Tab) 650 mg PO Q6H PRN PRN Reason: mild pain or fever Benzocaine/Menthol (Benzocaine/Menthol 20%-0.5% [place] 56 Gm Canister) 0 gm TOP ASDIRECTED PRN PRN Reason: Perineal Comfort Measure Last Admin: 05/31/21 20:34 Dose: 1 can Documented by: Docusate Sodium (Docusate Sodium 100 Mg Cap) 100 mg PO BID PRN PRN Reason: Constipation Last Admin: 06/01/21 05:49 Dose: 100 mg Documented by: Oxytocin/Lactated Ringer's (Pitocin In Lr 10 Units/1,000 Ml) 10 unit in 1,000 mls @ 100 mls/hr IV TITRATE KASSY; Protocol Ibuprofen (Ibuprofen 600 Mg Tab) 600 mg PO Q6H PRN PRN Reason: Mild pain or fever Last Admin: 06/01/21 03:16 Dose: 600 mg Documented by: Magnesium Hydroxide (Magnesium Hydroxide 400 Mg/5 Ml Susp 30 Ml Cup) 30 ml PO BEDTIME PRN PRN Reason: Constipation Prenat Multivit/[place]/Iron/Folic Ac ( Multivitamin With Calcium/Folic Acid/Iron Tab) 1 each PO DAILY [facility] [place] ([place] Medicated Pads 40/Jar) 1 pad TOP ASDIRECTED PRN PRN Reason: Perineal Comfort Measure Last Admin: 05/31/21 20:34 Dose: 1 tub Documented by: Discontinued Medications Calcium Carbonate/Glycine (Calcium Carbonate 500 Mg Tab.Chew) 1,000 mg PO Q2H PRN PRN Reason: Indigestion Diphenhydramine HCl (Diphenhydramine 50 Mg/Ml Sdv) 25 mg IVPUSH Q6H PRN PRN Reason: pruritis Ephedrine Sulfate (Ephedrine 50 Mg/Ml Sdv) 5 mg IVPUSH ASDIRECTED PRN PRN Reason: Hypotension Fentanyl (Fentanyl 100 Mcg/2 Ml Sdv) 100 mcg EPIDUR Q3H PRN PRN Reason: Pain Last Admin: 05/31/21 03:36 Dose: 100 mcg Documented by: Fentanyl/Bupivacaine HCl (Bupivacaine/Fentanyl/Ns 100 Ml Bag) 100 ml EPIDUR ASDIRECTED PRN PRN Reason: Pain Last Admin: 05/31/21 15:21 Dose: 100 ml Documented by: Oxytocin/Lactated Ringer's (Pitocin In Lr 10 Units/1,000 Ml) 10 unit in 1,000 mls @ 12 mls/hr IV TITRATE KASSY; Protocol Last Titration: 05/31/21 16:05 Dose: 10 munits/min, 60 mls/hr Documented by: Oxytocin/Lactated Ringer's (Pitocin In Lr 10 Units/1,000 Ml) 10 unit in 1,000 mls @ 500 mls/hr IV .CONTINUOUS KASSY Lactated Ringer's (Ringers, Lactated) 1,000 mls @ 100 mls/hr IV ASDIRECTED KASSY Last Admin: 05/31/21 09:30 Dose: 100 mls/hr Documented by: Misoprostol (Misoprostol 25 Mcg (1/4 Of 100 Mcg) Tab) 25 mcg PO ONETIME ONE Stop: 05/30/21 20:32 Last Admin: 05/30/21 21:13 Dose: 25 mcg Documented by: Nalbuphine HCl (Nalbuphine 10 Mg/1 Ml Vial) 10 mg IVPUSH Q2H PRN PRN Reason: Pain Ondansetron HCl (Ondansetron 4 Mg/2 Ml Sdv) 4 mg IVPUSH Q4H PRN PRN Reason: Nausea/Vomiting Sodium Chloride (Sodium Chloride 0.9% 10 Ml Syringe) 10 ml FLUSH ASDIRECTED PRN PRN Reason: Keep Vein Open - Interaction Support Person: - Recovery Exam Fundal Tone: Firm Fundal Level: At Umbilicus Fundal Placement: Midline Lochia Amount: Small Perineum Description: Other (see below) Other Perinuem Description: 2 degree w/repair Episiotomy/Laceration: Approximated Bladder Status: Voiding - Exam General: Alert, Oriented HEENT: Pupils Equal Neck: Supple Lungs: Clear to Auscultation, Normal Respiratory Effort Cardiovascular: Regular Rate, Regular Rhythm GI/Abdominal Exam: Normal Bowel Sounds, Soft, Non-Tender, No Organomegaly, No Distention, No Abnormal Bruit, No Mass, Pelvis Stable Skin: Warm, Dry Wound/Incisions: Healing Well Neurological: No New Focal Deficit Psy/Mental Status: Alert, Normal Affect, Normal Mood - Problem List Review Problem List Initiated/Reviewed/Updated: Yes - Assessment Assessment:: Doing well. No complaints. Likely home tomorrow.
--- NOTE | 2021-06-01 07:55 | PCM48HPAN ---
Post Anesthesia Note - EVALUATION WITHIN 48HRS OF ANESTHETIC Vital Signs in Normal Range: Yes Patient Participated in Evaluation: Yes Respiratory Function Stable: Yes Airway Patent: Yes Cardiovascular Function Stable: Yes Hydration Status Stable: Yes Pain Control Satisfactory: Yes Nausea and Vomiting Control Satisfactory: Yes Mental Status Recovered: Yes Vital Signs: Last Vital Signs Temp 98.2 F 06/01/21 03:09 Pulse 98 06/01/21 03:09 Resp 16 06/01/21 03:09 BP 96/52 L 06/01/21 03:09 Pulse Ox 100 06/01/21 03:09 - COMMENTS/OBSERVATIONS Free Text/Narrative:: Patient resting in bed when visiting with patient. Patient stated that she was "very happy" with her epidural and labor experience. Patient complained of mild back pain in epidural placement site but is controlled and has not gotten worse. Discussed signs and symptoms of infection, post-dural puncture headaches, post- depression, and if patient experiences increased back discomfort. Encouraged patient if any of those signs or symptoms develop to contact OB/Anesthesia so the patient can be treated accordingly if needed. Patient verbalized understanding. Patient did not voice any questions or concerns at this time. Radha Tena CRNA
[2021-06-01] MEDS: Prenatal Multivitamin with Calcium/Folic Acid/Iron Tab PO SCH (08:20)
[2021-06-01] MEDS ORDERED: Bupivacaine 0.25% 10 ML SDV ONE (18:00)
[2021-06-02] MEDS: Ibuprofen 600 MG Tab PO PRN (03:01)
--- NOTE | 2021-06-02 07:58 | PCM.SN.2 ---
- Free Text/Narrative Note: Post Progress Note PPD #2 Subjective: Doing well overall. Ambulating without difficulty. Lochia minimal. Voiding without difficulty. Tolerating regular diet without nausea or vomiting. Pain controlled with oral medications. Breast-feeding with minimal difficulty. Objective: Vitals: Vital Signs - 24 hr 06/01/21 06/01/21 06/02/21 10:52 21:06 03:10 Temperature 36.6 C 37.2 C 36.6 C Pulse, 103 H 115 H 96 Peripheral Respiratory 14 16 14 Rate Blood Pressure 109/77 117/75 106/78 O2 Sat by Pulse 99 100 100 Oximetry Physical Exam General: Alert and oriented, no acute distress Lungs: Clear to auscultation bilaterally Heart: Regular rate and rhythm Abdomen: Soft, minimal appropriate tenderness, non-distended, fundus midline, nontender, and 1 fingerbreadth below the umbilicus Extremities: No edema in bilateral lower extremities, no calf tenderness bilaterally ASSESSMENT: 26-year-old female -0-0-1 s/p vacuum-assisted vaginal delivery PPD #2, complicated by anxiety and not on medications during PLAN: Doing well Breast-feeding with minimal difficulty. Assist as needed Lochia minimal. Continue to monitor for appropriate lochia. Continue routine care Patient plans to restart on Zoloft as she was on this prior to . A prescription for Zoloft 25 mg daily was sent to her pharmacy. Patient plans to get the COVID-19 vaccination done at sometime in the near future. She will check to see if she is able to get this before she is discharged from the hospital. If she is unable to get this before she is discharged then she should schedule to have this given as an outpatient Discharge home today Andrew Nettles MD 7:58 AM 06/02/2021
--- NOTE | 2021-06-02 08:00 | PCM.DCSUM1 ---
Discharge Summary - Hospital Course Free Text/Narrative:: - General Info Date of Service: 05/31/21 Mother's Due Date: 05/24/21 - Delivery Note Labor: Augmented by Oxytocin Cervical Ripening Method: Misoprostil (25 mcg bucally x 1 dose on initial presentation ) Infant Delivery Method: Spontaneous Vaginal Delivery-Single Infant Delivery Mode: Vacuum Extraction (Aceves type) Presentation: Right Occiput Posterior (ROP) Nuchal Cord: None Anesthesia Type: Epidural Episiotomy Type: None Laceration: 2nd Degree (midline perineal, repaired with 3-0 Vicryl), Vaginal (left vaginal sidewall repaired with 3-0 Vicryl) Suture type: Vicryl Suture size: 3-0 Placenta: Intact, Spontaneous Cord: 3 Vessels Estimated Blood Loss: 800 Resuscitation Needed: Yes [place]: Suctioned, Bulb Syringe, Cathether, Stimulated, Warmed, [place] Used, Warmer Used Score 1 min: 6 Score 5 min: 8 Second Stage Interventions: Reports: Pushing Effectively, Pushing, Squatting, Pushing, Stirrups/Leg Supports Delivery Comments (Free Text/Narrative):: Stage I: Jessie Lang was admitted for induction of labor. On admission her cervix was dilated to 3 cm. She was GBS negative. Patient noted that she was having ongoing leaking of fluid prior to her arrival and an AmniSure test was collected. While waiting for the results of the AmniSure she had a large gush of clear fluid with a contraction and was felt to have had spontaneous rupture of membranes. She was given 1 dose of Cytotec 25 mcg buccally to promote cervical ripening prior to starting on Pitocin for augmentation of labor. She was started on Pitocin for augmentation of labor after the first dose of Cytotec. She was given an epidural for anesthesia. She continues to make slow progress throughout the morning and early afternoon of HD #2. She began pushing at around 2 PM on HD #2. During pushing it was noted that there was moderate meconium stained fluid present. Patient had straight catheterization of the bladder with return of approximately 25 mL of dark urine to ensure that the bladder was completely emptied after she had been pushing for approximately 3 hours. Stage II: Patient had been pushing for approximately 4.5 hours and had brought the infant down to a +2 station and was beginning to have decreased strength and effort with her pushes. She was counseled on options available including continued pushing, vacuum extractor delivery or section. Patient desired to continue with pushing for additional time at this point. Patient pushed for approximately 20 additional minutes and desired to proceed with vacuum extractor delivery due to maternal exhaustion. Patient was counseled on the risks and benefits of the vacuum extractor delivery including risks of maternal laceration, scalp laceration, cephalhematoma, subgaleal hemorrhage and shoulder dystocia. The mechanical belt type suction cup was then applied with care taken to ensure that the edematous vaginal tissue was not included between the vacuum extractor and the scalp. There was a significant amount of edema of the vaginal tissue inferior to the urethra. The infant was felt to be in a occiput posterior position based on exam. The vacuum extractor was placed at the flexion point on the head and vacuum was applied with each contraction. Suction was released between contractions. The vacuum was applied to approximately 550 mmHg during the contractions. Over the course of 2 contractions gentle traction was applied with maternal pushing and the was able to be delivered. The total amount of suction time was approximately 60 seconds. There were no pop offs during the delivery. During the first contraction the infant was delivered approximately senior care and then the was able to be delivered with the second contraction. On 05/31/2021 she had a vacuum-assisted vaginal delivery of a live male infant at 18:58. Apgars of 6 & 8. Weight of 3360 g (7 lbs 6.5 oz). Length of 21.2 inches. There was no nuchal cord. was delivered in ROP position. The cord was doubly clamped and cut by father the approximately 20 seconds after de livery. Infant was taken to the warmer for further resuscitation. Stage III: She had a spontaneous delivery of an intact placenta in Brijesh presentation. Three vessel cord. She was given pitocin and fundal massage. She had a second-degree left vaginal sidewall laceration that was repaired with 3-0 Vicryl. She had second-degree midline perineal laceration that was repaired with 3-0 Vicryl. Care was taken to ensure that there was not any additional laceration of the external anal sphincter. The muscle sheath of the external anal sphincter was intact on exam. Mom and baby were stable to recovery. EBL of 800 mL. Diagnosis: Stroke: No - Discharge Data Discharge Date: 06/02/21 Discharge Disposition: Home, Self-Care 01 Condition: Good - Referral to Home Health Primary Care Physician: Andrew Nettles MD - Discharge Diagnosis/Problem(s) (1) 41 weeks gestation of SNOMED Code(s): 87704986 ICD Code: Z3A.41 - 41 WEEKS GESTATION OF Status: Acute Current Visit: Yes (2) Anxiety during SNOMED Code(s): 51884795122238 ICD Code: O99.340 - OTH MENTAL DISORDERS COMPLICATING , UNSP TRIMESTER; F41.9 - ANXIETY DISORDER, UNSPECIFIED Status: Acute Current Visit: Yes (3) Vaginal delivery SNOMED Code(s): 705016531 ICD Code: O80 - ENCOUNTER FOR FULL-TERM UNCOMPLICATED DELIVERY Status: Acute Current Visit: Yes (4) Vacuum extractor delivery, delivered SNOMED Code(s): 302872729 ICD Code: O75.9 - COMPLICATION OF LABOR AND DELIVERY, UNSPECIFIED Status: Acute Current Visit: Yes (5) Second degree perineal laceration during delivery SNOMED Code(s): 8076646 ICD Code: O70.1 - SECOND DEGREE PERINEAL LACERATION DURING DELIVERY Status: Acute Current Visit: Yes (6) Thick meconium stained amniotic fluid SNOMED Code(s): 095118917 ICD Code: P96.83 - MECONIUM STAINING Status: Acute Current Visit: Yes - Patient Summary/Data Complications: None Consults: None Hospital Course: Jessie Lang was admitted for induction of labor. On admission her cervix was dilated to 3 cm. She was GBS negative. Patient noted that she was having ongoing leaking of fluid prior to her arrival and an AmniSure test was collected. While waiting for the results of the AmniSure she had a large gush of clear fluid with a contraction and was felt to have had spontaneous rupture of membranes. She was given 1 dose of Cytotec 25 mcg buccally to promote cervical ripening prior to starting on Pitocin for augmentation of labor. She was started on Pitocin for augmentation of labor after the first dose of Cytotec. She was given an epidural for anesthesia. She progressed to complete and pushing. During pushing it was noted that there was moderate meconium stained fluid present. Patient had been pushing for approximately 4.5 hours and had brought the infant down to a +2 station and was beginning to have decreased strength and effort with her pushes. On 05/31/2021 she had a vacuum-assisted vaginal delivery of a live male at 18:58. Apgars of 6 & 8. Weight of 3360 g (7 lbs 6.5 oz). Her course was uneventful. Her pain was well controlled and she had minimal lochia. She was ambulating, tolerating a regular diet and voiding normally. She was breast-feeding with minimal difficulty. She was afebrile and her hematocrit was 33.2 on PPD #1. She desired to be discharged home on the morning of PPD #2. Her blood type is B+. Patient desired to be started on Zoloft for anxiety that was present prior to . She had been on this medication and it had been working well. A prescription was sent to her pharmacy. - Patient Instructions Diet: Regular Diet as Tolerated Activity: Apply Ice, As Tolerated Activity, Other: Nothing in the vagina for 6 weeks Driving: May Drive Today Showering/Bathing: May Shower Notify Provider of: Fever, Increased Pain, Swelling and Redness, Drainage, Nausea and/or Vomiting Other/Special Instructions: Please contact your physician's office if you have heavy vaginal bleeding enough to soak a pad in less than an hour for several hours. Monitor for any signs of an infection in the breasts with severe pain or redness of the breast. - Discharge Plan *PRESCRIPTION DRUG MONITORING PROGRAM REVIEWED*: Not Applicable *COPY OF PRESCRIPTION DRUG MONITORING REPORT IN PATIENT SURINDER: Not Applicable Prescriptions/Med Rec: Sertraline [Zoloft] 25 mg PO DAILY #90 tablet Home Medications: Home Meds Acetaminophen [Tylenol] 650 mg PO Q6H PRN tablet 06/02/21 [Rx] Benzocaine/Menthol [Dermoplast Pain Relief [place]] 1 spray TOP ASDIRECTED PRN canister 06/02/21 [Rx] Docusate Sodium [Colace] 100 mg PO BID PRN cap 06/02/21 [Rx] Ibuprofen [Motrin] 600 mg PO Q6H PRN tablet 06/02/21 [Rx] Vit with Ca/FA/Iron [ Plus Iron] 1 each PO DAILY tablet 06/02/21 [Rx] Sertraline [Zoloft] 25 mg PO DAILY #90 tablet 06/02/21 [Rx] witjudi hardeneL [Tucks] 1 pad TOP ASDIRECTED PRN pad 06/02/21 [Rx] Patient Handouts: Care of a Perineal Tear, Care After Vaginal Delivery Referrals: Andrew Nettles MD [Primary Care Provider] - (Follow-up in 2 weeks for routine visit or earlier as needed.) - Discharge Summary/Plan Comment DC Time >30 min.: No Total # of Minutes for Discharge Time: 15 minutes - Patient Data Vitals - Most Recent: Last Vital Signs Temp 36.6 C 06/02/21 03:10 Pulse 96 06/02/21 03:10 Resp 14 06/02/21 03:10 BP 106/78 06/02/21 03:10 Pulse Ox 100 06/02/21 03:10 Weight - Most Recent: 67.948 kg I&O - Last 24 hours: Intake & Output 06/01/21 06/02/21 06/02/21 22:59 06:59 14:59 Intake Total 120 Balance 120 Med Orders - Current: Current Medications Acetaminophen (Acetaminophen 325 Mg Tab) 650 mg PO Q6H PRN PRN Reason: mild pain or fever Last Admin: 06/01/21 08:20 Dose: 650 mg Documented by: Benzocaine/Menthol (Benzocaine/Menthol 20%-0.5% [place] 56 Gm Canister) 0 gm TOP ASDIRECTED PRN PRN Reason: Perineal Comfort Measure Last Admin: 05/31/21 20:34 Dose: 1 can Documented by: Docusate Sodium (Docusate Sodium 100 Mg Cap) 100 mg PO BID PRN PRN Reason: Constipation Last Admin: 06/01/21 19:51 Dose: 100 mg Documented by: Oxytocin/Lactated Ringer's (Pitocin In Lr 10 Units/1,000 Ml) 10 unit in 1,000 mls @ 100 mls/hr IV TITRATE KASSY; Protocol Ibuprofen (Ibuprofen 600 Mg Tab) 600 mg PO Q6H PRN PRN Reason: Mild pain or fever Last Admin: 06/02/21 03:01 Dose: 600 mg Documented by: Magnesium Hydroxide (Magnesium Hydroxide 400 Mg/5 Ml Susp 30 Ml Cup) 30 ml PO BEDTIME PRN PRN Reason: Constipation Prenat Multivit/[place]/Iron/Folic Ac ( Multivitamin With Calcium/Folic Acid/Iron Tab) 1 each PO DAILY KASSY Last Admin: 06/01/21 08:20 Dose: 1 each Documented by: Joey Shipley (Joey Shipley Medicated Pads 40/Jar) 1 pad TOP ASDIRECTED PRN PRN Reason: Perineal Comfort Measure Last Admin: 05/31/21 20:34 Dose: 1 tub Documented by: Discontinued Medications Calcium Carbonate/Glycine (Calcium Carbonate 500 Mg Tab.Chew) 1,000 mg PO Q2H PRN PRN Reason: Indigestion Diphenhydramine HCl (Diphenhydramine 50 Mg/Ml Sdv) 25 mg IVPUSH Q6H PRN PRN Reason: pruritis Ephedrine Sulfate (Ephedrine 50 Mg/Ml Sdv) 5 mg IVPUSH ASDIRECTED PRN PRN Reason: Hypotension Fentanyl (Fentanyl 100 Mcg/2 Ml Sdv) 100 mcg EPIDUR Q3H PRN PRN Reason: Pain Last Admin: 05/31/21 03:36 Dose: 100 mcg Documented by: Fentanyl/Bupivacaine HCl (Bupivacaine/Fentanyl/Ns 100 Ml Bag) 100 ml EPIDUR ASDIRECTED PRN PRN Reason: Pain Last Admin: 05/31/21 15:21 Dose: 100 ml Documented by: Oxytocin/Lactated Ringer's (Pitocin In Lr 10 Units/1,000 Ml) 10 unit in 1,000 mls @ 12 mls/hr IV TITRATE KASSY; Protocol Last Titration: 05/31/21 16:05 Dose: 10 munits/min, 60 mls/hr Documented by: Oxytocin/Lactated Ringer's (Pitocin In Lr 10 Units/1,000 Ml) 10 unit in 1,000 mls @ 500 mls/hr IV .CONTINUOUS AKSSY Lactated Ringer's (Ringers, Lactated) 1,000 mls @ 100 mls/hr IV ASDIRECTED KASSY Last Admin: 05/31/21 09:30 Dose: 100 mls/hr Documented by: Misoprostol (Misoprostol 25 Mcg (1/4 Of 100 Mcg) Tab) 25 mcg PO ONETIME ONE Stop: 05/30/21 20:32 Last Admin: 05/30/21 21:13 Dose: 25 mcg Documented by: Nalbuphine HCl (Nalbuphine 10 Mg/1 Ml Vial) 10 mg IVPUSH Q2H PRN PRN Reason: Pain Ondansetron HCl (Ondansetron 4 Mg/2 Ml Sdv) 4 mg IVPUSH Q4H PRN PRN Reason: Nausea/Vomiting Sodium Chloride (Sodium Chloride 0.9% 10 Ml Syringe) 10 ml FLUSH ASDIRECTED PRN PRN Reason: Keep Vein Open
[2021-06-02] MEDS: Prenatal Multivitamin with Calcium/Folic Acid/Iron Tab PO SCH (10:00)
== END 2021-06-02 10:01 | disposition home or self-care (01) | DRG 560 ==
LOC: JD.OBCHECK 19:09 → JD.OB 19:10 → OBSVTOIN 05-31 18:58 → JD.OB 05-31 18:59
PROVIDERS: ADMIT Obstetrics & Gynecology; ATTEND Obstetrics & Gynecology
PROC: 10D07Z6 Extraction of Products of Conception, Vacuum, Via Natural or Artificial Opening (ICD-10-PCS; principal; 2021-05-31)
PROC: 0KQM0ZZ Repair Perineum Muscle, Open Approach (ICD-10-PCS; 2021-05-31)
PROC: 3E0P7VZ Introduction of Hormone into Female Reproductive, Via Natural or Artificial Opening (ICD-10-PCS; 2021-05-31)
PROC: 3E0R3BZ Introduction of Anesthetic Agent into Spinal Canal, Percutaneous Approach (ICD-10-PCS; 2021-05-31)
PROC: 00HU33Z Insertion of Infusion Device into Spinal Canal, Percutaneous Approach (ICD-10-PCS; 2021-05-31)
DX: O48.0 Post-term pregnancy (principal); Z37.0 Single live birth; O99.344 Other mental disorders complicating childbirth; F41.9 Anxiety disorder, unspecified; O70.1 Second degree perineal laceration during delivery; Z20.822 Contact with and (suspected) exposure to COVID-19; O77.0 Labor and delivery complicated by meconium in amniotic fluid; Z3A.41 41 weeks gestation of pregnancy
CPT/HCPCS: 01967; 36415; 51701; 51702; 59025; 59409; 80053; 82570; 83615; 84112; 84156; 85025; 86592; 86850; 86900; 86901; A9270-GY; J2590; J3010; J3490; J7120; U0002